=== PATIENT | female | born 1990 | race Caucasian/White ===

== ENCOUNTER → 2020-03-15 10:14 | Outpatient (BNVA) | payer OTHER, SELFPAY | PROVIDERS: PCP Internal Medicine; Visit Provider Surgery | DX: K80.20 Calculus of gallbladder without cholecystitis without obstruction (principal); R10.13 Epigastric pain | CPT/HCPCS: 99212 ==

== ENCOUNTER 2020-08-31 20:08 | Emergency (ER) | payer OTHER, SELFPAY ==
--- NOTE | ~2020-08-31 | US_ITS ---
EXAMINATION: US ABDOMEN LIMITED CLINICAL INFORMATION: Right upper quadrant epigastric pain with known gallstones. COMPARISON: None TECHNIQUE: Real-time imaging of the right upper quadrant abdominal viscera. FINDINGS: PANCREAS: The pancreas appears unremarkable, without masses or ductal dilatation, with the exception of the tail which is obscured by bowel gas. LIVER: The liver is normal in size. The liver contour is normal. Parenchymal echogenicity is normal. No focal hepatic lesion. There is no intrahepatic biliary duct dilatation seen. GALLBLADDER: The gallbladder is physiologically distended. Multiple mobile gallstones are present. No evidence of gallbladder wall thickening or pericholecystic fluid. The patient didn't exhibit tenderness over the gallbladder. COMMON BILE DUCT: Normal in caliber measuring 0.2 cm in diameter. RIGHT KIDNEY: Normal. No hydronephrosis. No renal calculi or focal parenchymal lesions. The kidney measures 10.0 cm in maximum dimension. FREE FLUID: None. US/US abdomen limited IMPRESSION: Cholelithiasis with some tenderness over the gallbladder. No wall thickening or pericholecystic fluid collections are seen.
[2020-08-31 20:16] VITALS: BP 113/73; PULSE 73; RESP 16; TEMP 36.8; O2SAT 99; BMI 26.1
--- NOTE | 2020-08-31 22:29 | ED_ITS ---
HPI - Abdominal Pain General Chief Complaint: Abdominal Pain Stated Complaint: nausea, abd pain Time Seen by Provider: 08/31/20 22:14 Source: patient Mode of arrival: ambulatory Limitations: no limitations History of Present Illness HPI narrative: Patient comes emergency room complaining of epigastric and right lower quadrant pain radiating towards the back. Patient states that she is aware that she has gallbladder stones. Has been seen by Dr. Callahan in March of 2020, it was decided to start patient on omeprazole to distinguish if the pain was coming from peptic ulcer disease/gastritis versus gallbladder calculi. Patient states that for last 2 months, omeprazole has been helping her symptoms. However, today, she has been taking omeprazole but the pain continues. Patient vomited 3 times, denies diarrhea, no fever. MD elicited complaint: abdominal pain Related Data Previous Rx's Medication Instructions Recorded omeprazole 20 mg capsule,delayed 20 mg PO DAILY 42 Days #42 cap 03/15/20 release ondansetron HCl [Zofran] 4 mg PO Q6H PRN #10 tab 09/01/20 tramadol 50 mg PO Q8H PRN #7 tab 09/01/20 Allergies Allergy/AdvReac Type Severity Reaction Status Date / Time No Known Allergies Allergy Unverified 12/23/19 16:25 [No Known Allergies*] Review of Systems Review of Systems Constitutional : No Weight loss, No Fever, No Chills, No Night Sweats, No Fatigue, No Malaise ENT/Mouth : No Hearing loss, No Ear Pain, No Nasal Congestion, No Sinus Pain, No Hoarseness, No sore throat, No Rhinorrhea, No Swallowing Difficulty Eyes: No Eye Pain, No Swelling, No Redness, No Foreign Body, No Discharge, No Vision Changes Cardiovascular : No Chest Pain, No SOB, No Dyspnea on Exertion, No Orthopnea, No Edema, No Palpitations Respiratory : No Cough, No Sputum, No Wheezing, No Smoke Exposure, No Dyspnea Gastrointestinal multiple episodes of nausea and vomiting,, No Diarrhea, No Constipation, complaining of epigastric and right upper quadrant pain radiating towards the back, No Hematochezia, No Melena Genitourinary : no irregular bleeding, No Dysuria, No Urinary Frequency, No Hematuria, No Urinary Incontinence, No Urgency, No Flank Pain, No Urinary Flow Changes, No Hesitancy Musculoskeletal : No joint pain, No Myalgias, No Joint Swelling Skin : No Skin Lesions, No rash Neuro : No Weakness, No Numbness, No Paresthesias, No Loss of Consciousness, No Dizziness, No Headache Psych : No Anxiety/Panic, No Depression, No SI/HI/AH/VH, No Social Issues, Heme/Lymph: No Bruising, No Bleeding,No Lymphadenopathy Endocrine : No Polyuria, No Polydipsia, No Temperature Intolerance Physical Exam Vital Signs: Vital Signs: Last Vital Signs Temp 98.1 F 09/01/20 02:28 Pulse 70 09/01/20 02:28 Resp 16 09/01/20 02:28 BP 122/71 09/01/20 02:28 Pulse Ox 100 09/01/20 02:28 Body Mass Index 26.1 Appearance: Alert. Oriented X3. No acute distress. Eyes: Pupils equal, round and reactive to light. ENT: Pharynx normal. Neck: Normal inspection. Neck supple. No lymph nodes noted. No crepitus CVS: Normal heart rate and rhythm. Pulses normal. Normal S1 and S2 Respiratory: No respiratory distress. Breath sounds normal. No Wheezing. No rales Abdomen: Soft tender to palpation over the epigastric area but more pronounced over the right upper quadrant, positive Valerio sign, No rigidity. No distention. good BS x4 Skin: Skin warm and dry. Normal skin color. Normal skin turgor. Extremities: No lower extremity edema. No lower extremity edema. No Lacerations. No Rash Neuro: Oriented X 3. No motor deficit. No sensory deficit. Moving all extermities. No slurred speech. Course Course Course Narrative: Patient was p.o. challenged, patient states that she has almost no pain at this time. I discussed with the patient that she needs to have close follow-up with Dr. Callahan/surgery. Patient did not vomit, did not have any additional abdominal pain. Ultrasound shows cholelithiasis with no acute cholecystitis. MDM - Abdominal Pain Lab Data Result diagrams: 08/31/20 22:44 08/31/20 22:44 Labs: Lab Results 08/31/20 08/31/20 Range/Units 22:44 22:44 WBC 7.3 (4.8-10.8) X10*3/uL RBC 4.76 (4.20-5.50) X10*6/uL Hgb 14.3 (12.0-16.0) g/dl Hct 42.4 (37-47) % MCV 89.1 (80-98) fL MCH 30.0 (27.0-33.0) pg MCHC 33.7 (31.0-35.0) g/dl RDW 11.9 (11.0-16.0) % Plt Count 328 (160-400) X10*3/uL MPV 9.5 (9.4-12.3) fL Immature Gran % (Auto) 0.1 (0.0-0.4) % Neut % (Auto) 45.3 (45-73) % Lymph % (Auto) 42.1 H (20-40) % Meeker % (Auto) 7.4 (2-11) % Eos % (Auto) 4.8 H (0-4) % Baso % (Auto) 0.3 (0-2) % Lymph # (Auto) 3.1 (1.2-4.9) X10*3/uL Meeker # (Auto) 0.5 (0.1-1.2) X10*3/uL Eos # (Auto) 0.4 (0.0-0.4) X10*3/uL Baso # (Auto) 0.0 (0.0-0.2) X10*3/uL Abs Immat Gran (auto) 0.01 (0.00-0.03) X10*3/uL Absolute Neuts (auto) 3.3 (2.0-8.3) X10*3/uL Absolute Nucleated RBC 0.000 (0.0-0.012) X10*3/uL Nucleated RBC % (auto) 0.0 (0.0-0.2) /100WBC Sodium 139 (135-145) mmol/L Potassium 3.9 (3.3-5.1) mmol/L Chloride 106 (96-108) mmol/L Carbon Dioxide 24 (22-29) mmol/L Anion Gap 13 (12-20) BUN 11 (9-16) mg/dL Creatinine 0.81 (0.5-1.4) mg/dL Estim Creat Clear Calc 106.9 Estimated GFR > 60 Random Glucose 97 (60-115) mg/dL Calcium 9.2 (8.4-10.2) mg/dL Total Bilirubin 0.2 (0.0-1.0) mg/dL Direct Bilirubin < 0.2 (0.0-0.5) mg/dL AST 71 H (5-31) U/L ALT 40 H (0-31) U/L Alkaline Phosphatase 63 (39-117) U/L Total Protein 6.7 (6.5-8.0) g/dL Albumin 4.0 (3.5-5.0) g/dL Lipase 49 (8-78) U/L ABG Data Interpretation: Patient states that after the ultrasound, the right upper quadrant pain starting getting worse. Patient lying in position and crying. Patient was given 4 mg of morphine. No nausea or vomiting. Imaging Data US - abdomen: Radiologist's impression: FINDINGS: PANCREAS: The pancreas appears unremarkable, without masses or ductal dilatation, with the exception of the tail which is obscured by bowel gas. LIVER: The liver is normal in size. The liver contour is normal. Parenchymal echogenicity is normal. No focal hepatic lesion. There is no intrahepatic biliary duct dilatation seen. GALLBLADDER: The gallbladder is physiologically distended. Multiple mobile gallstones are present. No evidence of gallbladder wall thickening or pericholecystic fluid. The patient didn't exhibit tenderness over the gallbladder. COMMON BILE DUCT: Normal in caliber measuring 0.2 cm in diameter. RIGHT KIDNEY: Normal. No hydronephrosis. No renal calculi or focal parenchymal lesions. The kidney measures 10.0 cm in maximum dimension. FREE FLUID: None. US/US abdomen limited IMPRESSION: Cholelithiasis with some tenderness over the gallbladder. No wall thickening or pericholecystic fluid collections are seen. Discharge Plan Discharge Clinical Impression: Cholelithiasis Patient Disposition: Home, Self-Care Instructions: Gallstones (ED) Additional Instructions: Please follow-up with your primary care physician tomorrow. If you have any worsening or new symptoms, please return to the emergency room or call 911 Prescriptions: New tramadol 50 mg tablet 50 mg PO Q8H PRN (Reason: pain) Qty: 7 RF: 0 ondansetron HCl [Zofran] 4 mg tablet 4 mg PO Q6H PRN (Reason: nausea and vomiting) Qty: 10 RF: 0 No Action omeprazole 20 mg capsule,delayed release(DR/EC) 20 mg PO DAILY 42 Days Qty: 42 RF: 0 Referrals: Casey Callahan MD [Physician] - 2 days [facility] Family History Family History Paternal Grandfather History of colon cancer Maternal Grandfather History of kidney cancer Social History Social History Alcohol intake: never Patient Tobacco Use Status: Never used Tobacco Use of substances other than those prescribed or required for medical reasons: No Advance Directives: No Advance Directives Information Provided: Yes Patient : No
[2020-08-31] MEDS: 0.9 % Sodium Chloride 1,000 ML 999 ML IVCONT (22:48)
[2020-08-31] MEDS: Lidocaine HCl Viscous 2 % 15 ML SOLUTION MUCOUS MEM (22:48)
[2020-08-31] MEDS: Magnesium Hydrox/Alum Hydrox 30 ML ORAL.SUSP PO (22:48)
[2020-08-31] MEDS: ondansetron HCL 4 MG/2 ML VIAL IVPUSH (22:48)
[2020-08-31] MEDS: Famotidine/PF 20 MG/2 ML VIAL IVPUSH (22:48)
[2020-08-31 22:50] LABS: MANUAL DIFF FLAG NO
[2020-08-31 22:52] LABS: Basophils Percent Auto 0.3 % (0-2); Eosinophils Absolute Auto 0.4 X10*3/uL (0.0-0.4); Eosinophils Percent Auto 4.8 % (0-4); Hematocrit 42.4 % (37-47); Hemoglobin 14.3 g/dl (12.0-16.0); Imm Gran Abs Auto 0.01 X10*3/uL (0.00-0.03); Imm Gran Pct Auto 0.1 % (0.0-0.4); Lymphocytes Absolute Auto 3.1 X10*3/uL (1.2-4.9); Lymphocytes Percent Auto 42.1 % (20-40); Mean Corpuscular HGB Conc 33.7 g/dl (31.0-35.0); Mean Corpuscular Volume 89.1 fL (80-98); Mean Platelet Volume 9.5 fL (9.4-12.3); Monocytes Absolute Auto 0.5 X10*3/uL (0.1-1.2); Monocytes Percent Auto 7.4 % (2-11); Neutrophils Absolute Auto 3.3 X10*3/uL (2.0-8.3); Neutrophils Percent Auto 45.3 % (45-73); Platelet Count 328 X10*3/uL (160-400); Red Blood Count 4.76 X10*6/uL (4.20-5.50); Red Cell Distribution Width 11.9 % (11.0-16.0); White Blood Count 7.3 X10*3/uL (4.8-10.8)
[2020-08-31 23:23] LABS: Alanine Aminotransferase 40 U/L (0-31); Alkaline Phosphatase 63 U/L (39-117); Anion Gap 13 (12-20); Aspartate Amino Transferase 71 U/L (5-31); Bilirubin Direct < 0.2 mg/dL (0.0-0.5); Bilirubin Total 0.2 mg/dL (0.0-1.0); Blood Urea Nitrogen 11 mg/dL (9-16); Calcium 9.2 mg/dL (8.4-10.2); Carbon Dioxide 24 mmol/L (22-29); Chloride 106 mmol/L (96-108); Creatinine Clr Calc Pharmacy 106.9; Estimated Glomerular Filt Rate > 60; Glucose Random 97 mg/dL (60-115); Lipase 49 U/L (8-78); Potassium 3.9 mmol/L (3.3-5.1); Sodium 139 mmol/L (135-145); Total Protein 6.7 g/dL (6.5-8.0)
[2020-09-01] MEDS: Morphine Sulfate 4 MG/ML CARTRIDGE IVPUSH (00:18)
[2020-09-01 02:28] VITALS: BP 122/71; PULSE 70; RESP 16; TEMP 36.7; O2SAT 100
[2020-09-01] MEDS: Morphine Sulfate 2 MG/ML CARTRIDGE 1 MG IVPUSH (03:19)
== END 2020-09-01 03:26 | disposition home or self-care (01) ==
PROVIDERS: Emergency Provider Emergency Medicine
DX: K80.20 Calculus of gallbladder without cholecystitis without obstruction (principal); R10.13 Epigastric pain; R10.31 Right lower quadrant pain; Z79.899 Other long term (current) drug therapy
CPT/HCPCS: 36415; 76705; 80048; 80076; 83690; 85025; 96365; 96374; 96375; 96376; 99284; J2270; J2405

== ENCOUNTER → 2020-09-05 09:17 | Outpatient (BNVA) | payer OTHER, SELFPAY | PROVIDERS: Visit Provider Surgery | DX: K80.00 Calculus of gallbladder with acute cholecystitis without obstruction (principal) | CPT/HCPCS: 99212 ==

== ENCOUNTER 2020-09-13 10:36 | Day surgery (SDC) | payer OTHER, SELFPAY ==
--- NOTE | 2020-09-12 09:43 | P.CONAN_ITS ---
Documented by User: Autumn Dutton 09/12/20 09:44 HPI - Anesthesia Eval Consult details Narrative: 29yo F for Cholecystectomy Laparoscopic, Poss Open [facility] Active Problems Active Problems: All Active Problems (Updated 09/05/20 @ 10:15 by Casey Callhaan MD) Cholecystitis, acute with cholelithiasis (Acute) Epigastric abdominal pain (Acute) Past Medical History Medical History No significant past medical history Family History Family History Paternal Grandfather History of colon cancer Maternal Grandfather History of kidney cancer Surgical History Surgical History Hx of wisdom tooth extraction Social History Social History Alcohol intake: never Patient Tobacco Use Status: Never used Tobacco Use of substances other than those prescribed or required for medical reasons: No Are you DNR?: No Advance Directives: No Advance Directives Information Provided: Yes Meds Allergies Allergy/AdvReac Type Severity Reaction Status Date / Time No Known Allergies Allergy Verified 09/13/20 11:23 [No Known Allergies*] Exam Exam Date and Time: September 12, [id number] Pertinent Lab Results Pertinent Lab Results: Laboratory Tests 08/31/20 08/31/20 22:44 22:44 WBC 7.3 Hgb 14.3 Hct 42.4 Plt Count 328 Sodium 139 Potassium 3.9 Chloride 106 Carbon Dioxide 24 BUN 11 Creatinine 0.81 Assessment and Plan Assessment Anesthesia Assessment: Chart Reviewed Documented by User: Betty Maddox 09/13/20 12:25 [facility] Past Medical History Medical History No significant past medical history Family History Family History Paternal Grandfather History of colon cancer Maternal Grandfather History of kidney cancer Surgical History Surgical History Hx of wisdom tooth extraction Social History Social History Alcohol intake: never Patient Tobacco Use Status: Never used Tobacco Use of substances other than those prescribed or required for medical reasons: No Are you DNR?: No Advance Directives: No Advance Directives Information Provided: Yes Meds Allergies Allergy/AdvReac Type Severity Reaction Status Date / Time No Known Allergies Allergy Verified 09/13/20 11:23 [No Known Allergies*] Exam Airway Mallampati Class: II TM Dist: >3cm Neck ROM: Full Assessment and Plan Assessment Anesthesia Assessment: Anesthesia Plan Discussed and Chart Reviewed Final Anesthetic Review NPO: Yes ASA Class: II Final Preanesthetic Review: No Changes in Pt Med Stat, Meds/Allgs Chart Reviewed, Consent Obtained/Reviewed and Anes Risks/Benef Reviewed Patient Risk: Low Procedure Risk: Low Assessment/Block/Sedation in SS: Assess/Block/Sedation-SS Anesthetic Plan Anesthetic Plan: GA Disposition: Standard PACU
[2020-09-13] VITALS (11 sets, daily range): BP systolic 113–138; BP diastolic 64–77; PULSE 64–100; RESP 16–18; TEMP 36.5–37.1; O2SAT 97–100; BMI 25.4
[2020-09-13 11:02] LABS: UPreg QC Valid YES; Urine Pregnancy NEGATIVE (NEGATIVE)
[2020-09-13] MEDS: Acetaminophen 325 MG TABLET 650 MG PO (11:10)
[2020-09-13] MEDS: Lactated Ringers 1,000 ML 100 ML IVCONT (11:20)
--- NOTE | 2020-09-13 12:50 | MHC.SHP ---
Pre-Procedural Eval Section A The patient is an INPATIENT: No Changes since office visit: Yes Patient answered all questions; No Cold of Flu in the past 2 weeks, No New Medical Problems and No Changes in Medication The History & Physical has been completed within 30 days and I have reviewed it.: Yes Section B Chief Complaint: Cholecystitis, acute with cholelithiasis Allergies: Allergies Allergy/AdvReac Type Severity Reaction Status Date / Time No Known Allergies Allergy Verified 09/13/20 11:23 [No Known Allergies*] Plan Diagnosis/Plan: Unchanged I have reviewed the history and physical and performed a pertinent physical examination on my patient. No changes have occurred unless specified.
--- NOTE | 2020-09-13 13:46 | W.PM.OPN ---
Operative Note Operative Note Date of Service: 09/13/20 Narrative: Preoperative diagnosis: Acute cholecystitis, cholelithiasis Postoperative diagnosis: Same Procedure: Laparoscopic cholecystectomy Surgeon: Casey Callahan MD Data Entry Specialist: No physician Anesthesia: General endotracheal Indications for procedure: 29-year-old female presenting with complaints of abdominal pain in the right upper quadrant associated with nausea and vomiting, found to have several gallstones within the gallbladder. On examination the patient is found to be tender in the right upper quadrant with a positive Valerio sign suggestive of acute cholecystitis. She presents today for elective laparoscopic cholecystectomy. Operative findings: Minimally inflamed gallbladder with normal gallbladder wall. Several gallstones within the gallbladder at the neck Specimen: Gallbladder Estimated blood loss: 1 mL Complications: None Procedure details: Patient was brought to the OR and placed in a supine position. After administering general anesthesia the patient's abdomen was prepped with ChloraPrep and draped in a sterile fashion. Local anesthesia consisting of 0.25% Sensorcaine with epinephrine was infiltrated in a periumbilical region. A 5 mm incision was made above the umbilicus in a transverse fashion. The Veress needle was then inserted while elevating abdominal cavity with towel clips. After positive drop test the abdomen was insufflated to a pressure of 15 mm of mercury. The Veress needle was then removed and a 5 mm trocar inserted. The camera was inserted in the abdomen explored. A 12 mm trocar was then placed in the epigastrium and two 5 mm trocars placed in the right upper quadrant. The patient was placed in reverse Trendelenburg positioning and rotated to the left. The gallbladder was grasped with the fundus and retracted cephalad.. The infundibulum Was then grasped and retracted away from the liver bed. The Dolphin dissected was then used to dissect the peritoneum off the infundibulum to reveal the junction with the cystic duct. Cystic artery was noted slightly medial and posterior to the cystic duct. After obtaining a critical view the cystic duct was doubly clipped and divided. The cystic artery was then doubly clipped and divided. The gallbladder was then dissected off the liver bed using electrocautery with an L hook. Hemostasis was assured all times using the electrocautery. When the gallbladder is completely dissected off the liver bed was placed in an Endo-Catch bag and brought out through the epigastric incision. The gallbladder was sent to pathology for further examination. The abdomen was then re-examined. The liver bed was irrigated and suctioned dry. No bleeding or bile leak could be identified. CO2 was then evacuated and all trocars removed. Fascia was closed at the epigastric incision using a [id number] 0 Polysorb suture. Skin was closed in all incisions using a subcuticular 4 0 Polysorb suture. Sterile dressings consisting of Steri-Strips, 2 x 2 gauze, and Tegaderm were then applied. The patient tolerated the procedure well. Sponge instrument and needle counts reported as correct. The patient was transferred to PACU in stable condition.
== END 2020-09-13 16:55 | disposition home or self-care (01) ==
PROVIDERS: Nurse Practitioner; Visit Provider Surgery
PROC: 0FT44ZZ Resection of Gallbladder, Percutaneous Endoscopic Approach (ICD-10-PCS; CPT 47562; principal; 2020-09-13 12:20)
DX: K80.00 Calculus of gallbladder with acute cholecystitis without obstruction (principal)
CPT/HCPCS: 47562; 81025; 88304; J1100; J1170; J1885; J2250; J2405; J2550; J3010

== ENCOUNTER → 2020-09-19 09:14 | Outpatient (BNVA) | payer OTHER, SELFPAY | PROVIDERS: PCP Physician Assistant Medical; Visit Provider Surgery | DX: Z48.815 Encounter for surgical aftercare following surgery on the digestive system (principal); Z87.19 Personal history of other diseases of the digestive system | CPT/HCPCS: 99212 ==

== ENCOUNTER 2020-10-24 15:32 | Emergency (ER) | payer OTHER, SELFPAY ==
[2020-10-24 16:00] VITALS: BP 129/92; PULSE 89; RESP 18; TEMP 36.8; O2SAT 98; BMI 25.4
--- NOTE | 2020-10-24 17:56 | ED.GENADULT ---
HPI - General Adult General Chief complaint: General Medical Stated complaint: vomiting,abdominal pain Time Seen by Provider: 10/24/20 17:55 Source: patient Mode of arrival: ambulatory Limitations: no limitations History of Present Illness HPI narrative: 29 y/o female with history of cholecystitis with cholelithiasis s/p lap cholecystectomy on 09/13/20 who presents to the ER complaint: N/V Related Data Previous Rx's Medication Instructions Recorded ondansetron HCl [Zofran] 4 mg PO Q6H PRN #10 tab 09/01/20 tramadol 50 mg PO Q8H PRN #7 tab 09/01/20 docusate sodium 100 mg capsule 100 mg PO BID PRN #30 cap 09/15/20 Allergies Allergy/AdvReac Type Severity Reaction Status Date / Time No Known Allergies Allergy Verified 10/24/20 16:16 [No Known Allergies*] [facility], [facility] Past Medical History Medical History No significant past medical history Surgical History (Updated 09/19/20 @ 09:38 by Casey Callahan MD) Hx of wisdom tooth extraction S/P laparoscopic cholecystectomy (09/13/20) Family History Family History Paternal Grandfather History of colon cancer Maternal Grandfather History of kidney cancer Social History Social History Alcohol intake: never Patient Tobacco Use Status: Never used Tobacco Patient : No Physical Exam Vital Signs: Vital Signs: Last Vital Signs Temp 98.3 F 10/24/20 16:00 Pulse 89 10/24/20 16:00 Resp 18 10/24/20 16:00 BP 129/92 H 10/24/20 16:00 Pulse Ox 98 10/24/20 16:00 Body Mass Index 25.4 Discharge Plan Discharge Prescriptions: No Action docusate sodium [Colace] 100 mg capsule 100 mg PO BID PRN (Reason: constipation) Qty: 30 RF: 0 tramadol 50 mg tablet 50 mg PO Q8H PRN (Reason: pain) Qty: 7 RF: 0 ondansetron HCl [Zofran] 4 mg tablet 4 mg PO Q6H PRN (Reason: nausea and vomiting) Qty: 10 RF: 0
== END 2020-10-24 18:29 | disposition left against medical advice (07) ==
LOC: HO.ED 18:29
PROVIDERS: Emergency Provider Internal Medicine
DX: R11.10 Vomiting, unspecified (principal); R10.9 Unspecified abdominal pain
CPT/HCPCS: 99281; 99282

== ENCOUNTER 2021-01-14 08:13 | Emergency (ER) | payer OTHER, SELFPAY ==
--- NOTE | ~2021-01-14 | CT_ITS ---
EXAMINATION: CT ABDOMEN AND PELVIS WITH CONTRAST CLINICAL INFORMATION: Epigastric, right upper quadrant, left flank pain COMPARISON: Portions of a study performed without IV contrast 08/24/14 TECHNIQUE: Multidetector volumetric images were obtained from the superior aspect of the liver through the pubic symphysis following administration 85 mL of Omnipaque 350 intravenous contrast. Sagittal and coronal reformatted images were obtained on the technologist's workstation. Oral contrast: No This CT examination was performed using dose optimization techniques as appropriate, variously including the following: *Automated exposure control *Adjustment of mA and/or kV according to patient size (this includes techniques or standardized protocols for targeted exams where dose is matched to indication/reason for exam; i.e. extremities or head) *Use of iterative reconstruction technique DLP: 533 mGy-cm FINDINGS: LUNG BASES: No suspicious abnormality in the visualized lower chest LIVER, GALLBLADDER, AND BILIARY TREE: No suspicious focal liver lesion. There is surgical clips in the expected region of the gallbladder. No biliary dilation. 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 The nephrograms are symmetric. No suspicious renal mass. No perinephric stranding. BLADDER: The bladder is nearly empty. No definite abnormality. GASTROINTESTINAL TRACT: No localized colonic wall thickening or localized pericolonic fat stranding. The appendix is fairly long but normal caliber and there is no localized fat stranding or appendicolith. There is fluid and semisolid material within a moderately distended stomach. There are some fluid-filled top normal caliber small bowel loops. No evidence of high-grade bowel obstruction. ABDOMINAL WALL: There is some nonspecific fat stranding. No bowel hernia. LYMPH NODES: There are no measurably enlarged abdominal or pelvic lymph nodes. VASCULAR: There is no abdominal aortic aneurysm. The portal vein enhances. PELVIC VISCERA: The uterus is retroflexed. No suspicious adnexal mass or collection. OSSEOUS STRUCTURES: No suspicious focal lesion. CT/CT abdomen pelvis w con IMPRESSION: There is no abnormality which might account for epigastric, right upper quadrant or left flank pain. Evidence of previous cholecystectomy. Long but normal caliber appendix. No evidence of significant GI tract obstruction.
[2021-01-14 08:21] VITALS: BP 127/83; PULSE 88; RESP 18; TEMP 36.4; O2SAT 98; BMI 25.8
[2021-01-14 08:58] VITALS: BP 124/93; PULSE 94; RESP 20; TEMP 37.6; O2SAT 97
[2021-01-14 09:12] LABS: MANUAL DIFF FLAG NO
[2021-01-14] MEDS: ondansetron HCL 4 MG/2 ML VIAL IVPUSH (09:13)
[2021-01-14] MEDS: 0.9 % Sodium Chloride 1,000 ML 999 ML IVCONT (09:13)
[2021-01-14] MEDS: Morphine Sulfate 4 MG/ML CARTRIDGE IVPUSH (09:13)
[2021-01-14 09:14] LABS: Basophils Percent Auto 0.3 % (0-2); Eosinophils Absolute Auto 0.2 X10*3/uL (0.0-0.4); Eosinophils Percent Auto 3.1 % (0-4); Hemoglobin 14.7 g/dl (12.0-16.0); Imm Gran Abs Auto 0.01 X10*3/uL (0.00-0.03); Imm Gran Pct Auto 0.1 % (0.0-0.4); Lymphocytes Absolute Auto 1.4 X10*3/uL (1.2-4.9); Lymphocytes Percent Auto 17.9 % (20-40); Mean Corpuscular Hemoglobin 30.3 pg (27.0-33.0); Mean Corpuscular Volume 86.6 fL (80-98); Mean Platelet Volume 9.7 fL (9.4-12.3); Monocytes Absolute Auto 0.4 X10*3/uL (0.1-1.2); Monocytes Percent Auto 5.2 % (2-11); Neutrophils Absolute Auto 5.6 X10*3/uL (2.0-8.3); Neutrophils Percent Auto 73.4 % (45-73); Platelet Count 274 X10*3/uL (160-400); Red Blood Count 4.85 X10*6/uL (4.20-5.50); Red Cell Distribution Width 11.6 % (11.0-16.0); White Blood Count 7.7 X10*3/uL (4.8-10.8)
[2021-01-14 09:21] LABS: Prothrombin Time 11.1 SEC (9.9-13.0)
[2021-01-14 09:38] LABS: Alanine Aminotransferase 19 U/L (0-31); Alkaline Phosphatase 67 U/L (39-117); Anion Gap 13 (12-20); Aspartate Amino Transferase 31 U/L (5-31); Bilirubin Total 0.6 mg/dL (0.0-1.0); Blood Urea Nitrogen 13 mg/dL (9-16); Carbon Dioxide 21 mmol/L (22-29); Chloride 110 mmol/L (96-108); Creatinine Clr Calc Pharmacy 108.1; Estimated Glomerular Filt Rate > 60; Glucose Random 110 mg/dL (60-115); Lactate Dehydrogenase 282 U/L (122-220); Lipase 25 U/L (8-78); Potassium 4.7 mmol/L (3.3-5.1); Sodium 139 mmol/L (135-145); Total Protein 7.1 g/dL (6.5-8.0)
[2021-01-14 09:52] LABS: HCG Quantitative < 2 mIU/mL
[2021-01-14 10:23] VITALS: BP 98/49; PULSE 91; RESP 18; TEMP 37.2; O2SAT 100
[2021-01-14] MEDS: PHENobarb/Hyoscy/Atropine/Scop 10 ML ELIXIR PO (10:32)
[2021-01-14] MEDS: Ketorolac Tromethamine 15 MG/ML VIAL 30 MG IVPUSH (10:32)
[2021-01-14] MEDS: Lidocaine HCl Viscous 2 % 15 ML SOLUTION MUCOUS MEM (10:32)
[2021-01-14] MEDS: Magnesium Hydrox/Alum Hydrox 30 ML ORAL.SUSP PO (10:32)
--- NOTE | 2021-01-14 10:47 | ED_ITS ---
HPI - Abdominal Pain General Chief Complaint: Abdominal Pain Stated Complaint: abd pain Time Seen by Provider: 01/14/21 08:42 Source: patient Mode of arrival: ambulatory Limitations: no limitations History of Present Illness HPI narrative: 30-year-old female with a past medical history of a cholecystectomy by Dr. Callahan in September 2020 presenting to the ED with complaints of nausea/vomiting with epigastric/right upper quadrant abdominal pain and left flank pain since yesterday worse today. Reports associated chills and diarrhea as well. Denies recent travel or sick contacts. Denies any measured fevers, dizziness, headaches, neck pain/stiffness, chest pain or shortness of breath, cough, sore throat, back pain, dysuria, hematuria, abnormal vaginal discharge, black or bloody stools, constipation, recent travel or sick contacts or recent ETOH intake or drug usage or any other symptoms complaints or concerns at this time. Patient reports she is on the Depo for control and her last period was approximately 3 months ago and she has irregular periods since being on the Depo for control. Does not have any thoughts of today. MD elicited complaint: abdominal pain Pertinent past history: other (Had a cholecystectomy in September 2020) Onset (ago): day(s) (Since yesterday worse today) Pain Consistency: constant Location: epigastric, RUQ and L flank Severity: severe Pain scale (0-10): 10 Quality: aching Radiation: none Migration to: no migration Exacerbating factors: nothing Relieving factors: nothing Associated symptoms: nausea, vomiting, diarrhea and chills Related Data Previous Rx's Medication Instructions Recorded ondansetron HCl 4 mg tablet 4 mg PO Q6H PRN #10 tab 09/01/20 (Zofran) tramadol 50 mg tablet 50 mg PO Q8H PRN #7 tab 09/01/20 docusate sodium 100 mg capsule 100 mg PO BID PRN #30 cap 09/15/20 (Colace) acetaminophen 500 mg tablet 1,000 mg PO QID PRN #14 tab 01/14/21 (Tylenol Extra Strength) famotidine 20 mg tablet (Pepcid) 20 mg PO BID #20 tab 01/14/21 ibuprofen 600 mg tablet 600 mg PO Q6H PRN #14 tab 01/14/21 ondansetron HCl 4 mg tablet 4 mg PO Q8H PRN #14 tab 01/14/21 (Zofran) oxycodone 5 mg tablet 5 mg PO Q6H PRN #14 tab 01/14/21 simethicone 125 mg capsule 125 mg PO DAILY PRN #20 cap 01/14/21 Allergies Allergy/AdvReac Type Severity Reaction Status Date / Time No Known Allergies Allergy Verified 10/24/20 16:16 [No Known Allergies*] Review of Systems Review of Systems Constitutional : Positive chills, No Weight loss, No Fever, No Night Sweats, No Fatigue, NoMalaise ENT/Mouth: No ear pain, No sore throat, No Difficulty swallowing Cardiovascular : No Chest Pain, No SOB, No Dyspnea on Exertion, No Orthopnea, NoEdema, No Palpitations Respiratory : No Cough, No Sputum, No Wheezing, No Dyspnea Gastrointestinal : Positive nausea/vomiting/abdominal pain/diarrhea, No blood streaked emesis, No coffee-ground emesis, No gross hematemesis, No blood streak stool, No gross hematochezia, No Melena Genitourinary : No irregular bleeding, No Dysuria, No Urinary Frequency, No Hematuria,No Urinary Incontinence, No Urgency, No Flank Pain Musculoskeletal : No joint pain, No Myalgias, No Joint Swelling Skin : No Skin Lesions, No rash Neuro : No Weakness, No Numbness, No Paresthesias, No Loss of Consciousness, NoDizziness, No Headache Psych : No Social Issues, Heme/Lymph: No Bruising, No Bleeding,No Lymphadenopathy Endocrine : No Polyuria, No Polydipsia, No Temperature Intolerance Yes all other systems are reviewed and are negative Physical Exam Vital Signs: Vital Signs: Last Vital Signs Temp 98.7 F 01/14/21 12:25 Pulse 80 01/14/21 12:25 Resp 18 01/14/21 12:25 BP 104/48 L 01/14/21 12:25 Pulse Ox 98 01/14/21 12:25 Body Mass Index 25.8 vital signs have been reviewed as normal and appeared to be correct. Blood pressure normal. Heart rate normal. Respiration rate normal. Temperature normal. Oxygen saturation normal. Appearance: Alert. Oriented X3. No acute distress. Head: Normal external exam. Normocephalic. Eyes: PERRLA. EOMI. Conjunctiva and sclera normal. Eyelids normal. ENT: Pharynx normal. Uvula midline. Moist mucous membranes. Neck: Normal inspection. Neck supple. FROM. No adenopathy. No meningeal signs. CVS: Normal heart rate and rhythm. Heart sound normal. No murmurs noted. Pulses normal throughout. Respiratory: No respiratory distress. Painless inspiration. Breath sounds normal. No wheezes/rales/rhonchi noted. Chest nontender. No accessory muscle usage noted or decreased air movement noted. Abdomen: Soft and moderate tenderness of patient to epigastric/right upper quadrant/left flank with guarding. Nondistended. No rigidity. Bowel sounds normal in all 4 quadrants. No distention noted. No organomegaly noted. No visible injury noted. No rebound tenderness. Negative Rovsing sign. Negative obturator's sign. Negative psoas sign. Negative Valerio sign. Back: Positive bilateral CVA tenderness. Full range of motion noted. Skin: Skin warm and dry. Normal skin color. Normal skin turgor. No rashes /lesions/lacerations noted. Extremities: Extremities exhibit normal range of motion. Extremities nontender. Neuro: Oriented X 3. No motor deficit. No sensory deficit. Reflexes normal. Normal steady gait. Course Course Course Narrative: 8:45am - 30-year-old female with a past medical history of a cholecystectomy by Dr. Callahan in September 2020 presenting to the ED with complaints of nausea/vomiting with epigastric/right upper quadrant abdominal pain and left flank pain since yesterday worse today. Reports associated chills and diarrhea as well. Patient reports she is on the Depo for control and her last period was approximately 3 months ago and she has irregular periods since being on the Depo for control. Does not have any thoughts of today. No recent EtOH intake. Plan: Labs, UA, test, CT scan abdomen pelvis with IV contrast. Provide a L of IV fluids with 4 mg of Zofran and 4 mg of morphine and re- evaluate. Reevaluation(s) Reevaluation #1: - labs reviewed and patient with an elevated LDH at 282 otherwise all other labs are within normal limits. Serum quant negative for . - awaiting CT scan abdomen pelvis with IV contrast and a UA - patient was still complaining of pain and she was noted to have a lot of burping therefore she was given a GI cocktail and 30 mg of IV Toradol re- evaluate Time: 10:54 Reevaluation #2: - UA with trace of leukocytes otherwise no evidence of UTI and negative . - abdomen pelvis with IV contrast revealed chronic changes no acute processes were noted and no abnormality which might account for the patient's epigastric/right upper quadrant/left flank pain. I printed out the report given to the patient explained this to her. - she was very tearful when I went into the room appeared in pain and I explained to her that I can give her more pain medications and we can and admit her for intractable unknown abdominal pain although patient is declining and she reports that she will go home with pain meds and nausea medication and should return if she needs to. Therefore at this time will DC home with symptomatic treatment instructions return if any new or worsening 7 follow-up with primary care provider. Patient understands agrees with this plan. Time: 13:12 [facility] - Abdominal Pain Medical Records Attestation: I reviewed the patient's medical records. Lab Data Attestation: I reviewed the patient's lab results. Result diagrams: 01/14/21 09:08 01/14/21 09:09 Labs: Lab Results 01/14/21 01/14/21 01/14/21 Range/Units 09:08 09:08 09:09 WBC 7.7 (4.8-10.8) X10*3/uL RBC 4.85 (4.20-5.50) X10*6/uL Hgb 14.7 (12.0-16.0) g/dl Hct 42.0 (37-47) % MCV 86.6 (80-98) fL MCH 30.3 (27.0-33.0) pg MCHC 35.0 (31.0-35.0) g/dl RDW 11.6 (11.0-16.0) % Plt Count 274 (160-400) X10*3/uL MPV 9.7 (9.4-12.3) fL Immature Gran % (Auto) 0.1 (0.0-0.4) % Neut % (Auto) 73.4 H (45-73) % Lymph % (Auto) 17.9 L (20-40) % [place] % (Auto) 5.2 (2-11) % Eos % (Auto) 3.1 (0-4) % Baso % (Auto) 0.3 (0-2) % Lymph # (Auto) 1.4 (1.2-4.9) X10*3/uL [place] # (Auto) 0.4 (0.1-1.2) X10*3/uL Eos # (Auto) 0.2 (0.0-0.4) X10*3/uL Baso # (Auto) 0.0 (0.0-0.2) X10*3/uL Abs Immat Gran (auto) 0.01 (0.00-0.03) X10*3/uL Absolute Neuts (auto) 5.6 (2.0-8.3) X10*3/uL Absolute Nucleated RBC 0.000 (0.0-0.012) X10*3/uL Nucleated RBC % (auto) 0.0 (0.0-0.2) /100WBC PT 11.1 (9.9-13.0) SEC INR 1.0 (0.9-1.1) Sodium 139 (135-145) mmol/L Potassium 4.7 D (3.3-5.1) mmol/L Chloride 110 H (96-108) mmol/L Carbon Dioxide 21 L (22-29) mmol/L Anion Gap 13 (12-20) BUN 13 (9-16) mg/dL Creatinine 0.79 (0.5-1.4) mg/dL Estim Creat Clear Calc 108.1 Estimated GFR > 60 Random Glucose 110 (60-115) mg/dL Calcium 9.0 (8.4-10.2) mg/dL Magnesium 2.0 (1.6-2.6) mg/dL Total Bilirubin 0.6 (0.0-1.0) mg/dL AST 31 D (5-31) U/L ALT 19 (0-31) U/L Alkaline Phosphatase 67 (39-117) U/L Lactate Dehydrogenase 282 H (122-220) U/L Total Protein 7.1 (6.5-8.0) g/dL Albumin 4.0 (3.5-5.0) g/dL Lipase 25 (8-78) U/L Beta HCG, Quant < 2 mIU/mL Urine Color Urine Appearance Urine pH (5.0-8.0) Ur Specific [place] (1.005-1.025) Urine Protein (NEG-TRACE) MG/DL Urine Glucose (UA) (NEG) MG/DL Urine Ketones (NEG) MG/DL Urine Blood (NEG) Urine Nitrite (NEG) Ur Leukocyte Esterase (NEG) Urine RBC (0) /HPF Urine WBC (0-4) /HPF Ur Squamous Epith Cells /LPF Urine Bacteria /LPF Urine Test (NEGATIVE) 01/14/21 01/14/21 Range/Units 11:48 11:48 WBC (4.8-10.8) X10*3/uL RBC (4.20-5.50) X10*6/uL Hgb (12.0-16.0) g/dl Hct (37-47) % MCV (80-98) fL MCH (27.0-33.0) pg MCHC (31.0-35.0) g/dl RDW (11.0-16.0) % Plt Count (160-400) X10*3/uL MPV (9.4-12.3) fL Immature Gran % (Auto) (0.0-0.4) % Neut % (Auto) (45-73) % Lymph % (Auto) (20-40) % [place] % (Auto) (2-11) % Eos % (Auto) (0-4) % Baso % (Auto) (0-2) % Lymph # (Auto) (1.2-4.9) X10*3/uL [place] # (Auto) (0.1-1.2) X10*3/uL Eos # (Auto) (0.0-0.4) X10*3/uL Baso # (Auto) (0.0-0.2) X10*3/uL Abs Immat Gran (auto) (0.00-0.03) X10*3/uL Absolute Neuts (auto) (2.0-8.3) X10*3/uL Absolute Nucleated RBC (0.0-0.012) X10*3/uL Nucleated RBC % (auto) (0.0-0.2) /100WBC PT (9.9-13.0) SEC INR (0.9-1.1) Sodium (135-145) mmol/L Potassium (3.3-5.1) mmol/L Chloride (96-108) mmol/L Carbon Dioxide (22-29) mmol/L Anion Gap (12-20) BUN (9-16) mg/dL Creatinine (0.5-1.4) mg/dL Estim Creat Clear Calc Estimated GFR Random Glucose (60-115) mg/dL Calcium (8.4-10.2) mg/dL Magnesium (1.6-2.6) mg/dL Total Bilirubin (0.0-1.0) mg/dL AST (5-31) U/L ALT (0-31) U/L Alkaline Phosphatase (39-117) U/L Lactate Dehydrogenase (122-220) U/L Total Protein (6.5-8.0) g/dL Albumin (3.5-5.0) g/dL Lipase (8-78) U/L Beta HCG, Quant mIU/mL Urine Color YELLOW Urine Appearance CLEAR Urine pH 6.0 (5.0-8.0) Ur Specific [place] 1.025 (1.005-1.025) Urine Protein NEG (NEG-TRACE) MG/DL Urine Glucose (UA) NEG (NEG) MG/DL Urine Ketones NEG (NEG) MG/DL Urine Blood NEG (NEG) Urine Nitrite NEG (NEG) Ur Leukocyte Esterase TRACE H (NEG) Urine RBC 0 (0) /HPF Urine WBC 1-4 (0-4) /HPF Ur Squamous Epith Cells 2+ /LPF Urine Bacteria 1+ /LPF Urine Test NEGATIVE (NEGATIVE) Imaging Data CT scan abdomen pelvis with IV contrast: Attestation: I personally reviewed and interpreted this imaging study as follows: Radiologist's impression: FINDINGS: LUNG BASES: No suspicious abnormality in the visualized lower chest? LIVER, GALLBLADDER, AND BILIARY TREE: No suspicious focal liver lesion. There is surgical clips in the expected region of the gallbladder. No biliary dilation.? PANCREAS: Within normal limits? SPLEEN: Normal? ADRENAL GLANDS: Normal? 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 The nephrograms are symmetric. No suspicious renal mass. No perinephric stranding.? BLADDER: The bladder is nearly empty. No definite abnormality.? GASTROINTESTINAL TRACT: No localized colonic wall thickening or localized pericolonic fat stranding. The appendix is fairly long but normal caliber and there is no localized fat stranding or appendicolith. There is fluid and semisolid material within a moderately distended stomach. There are some fluid-filled top normal caliber small bowel loops. No evidence of high-grade bowel obstruction.? ABDOMINAL WALL: There is some nonspecific fat stranding. No bowel hernia.? LYMPH NODES: There are no measurably enlarged abdominal or pelvic lymph nodes. VASCULAR: There is no abdominal aortic aneurysm. The portal vein enhances. PELVIC VISCERA: The uterus is retroflexed. No suspicious adnexal mass or collection.? OSSEOUS STRUCTURES: No suspicious focal lesion.? CT/CT abdomen pelvis w con IMPRESSION: There is no abnormality which might account for epigastric, right upper quadrant or left flank pain. Evidence of previous cholecystectomy. Long but normal caliber appendix. No evidence of significant GI tract obstruction.? Discharge Plan Discharge Clinical Impression: Epigastric abdominal pain, Flatus, GERD (gastroesophageal reflux disease) Patient Disposition: Home, Self-Care Instructions: Gastroesophageal Reflux Disease (ED), Gas and Bloating (ED), Epigastric Pain (ED) Prescriptions: New ondansetron HCl [Zofran] 4 mg tablet 4 mg PO Q8H PRN (Reason: nausea and vomiting) Qty: 14 RF: 0 famotidine [Pepcid] 20 mg tablet 20 mg PO BID Qty: 20 RF: 0 oxycodone 5 mg tablet 5 mg PO Q6H PRN (Reason: pain) Qty: 14 RF: 0 simethicone 125 mg capsule 125 mg PO DAILY PRN (Reason: abdominal distention) Qty: 20 RF: 0 acetaminophen [Tylenol Extra Strength] 500 mg tablet 1,000 mg PO QID PRN (Reason: fever or pain) Qty: 14 RF: 0 ibuprofen 600 mg tablet 600 mg PO Q6H PRN (Reason: fever) Qty: 14 RF: 0 No Action docusate sodium [Colace] 100 mg capsule 100 mg PO BID PRN (Reason: constipation) Qty: 30 RF: 0 tramadol 50 mg tablet 50 mg PO Q8H PRN (Reason: pain) Qty: 7 RF: 0 ondansetron HCl [Zofran] 4 mg tablet 4 mg PO Q6H PRN (Reason: nausea and vomiting) Qty: 10 RF: 0 Referrals: Physician,Unknown J [Primary Care Provider] - 2 days (your pcp) Stand Alone Forms: Work/School Release Print Language: Citizen Of [place] [facility] Past Medical History Attestation statement: The following information was validated with the patient. Medical History No significant past medical history Surgical History Hx of wisdom tooth extraction S/P laparoscopic cholecystectomy (09/13/20) Family History Family History Paternal Grandfather History of colon cancer Maternal Grandfather History of kidney cancer Social History Social History Alcohol intake: never Patient Tobacco Use Status: Never used Tobacco Use of substances other than those prescribed or required for medical reasons: No Advance Directives: No Patient : No
[2021-01-14] MEDS: iohexoL 350 MG/ML 100 ML INFUS..BTL 85 ML IV (11:14)
[2021-01-14 11:53] LABS: Appearance Urine CLEAR; Color Urine YELLOW; Glucose Urine UA NEG (NEG); Leukocyte Esterase Urine TRACE (NEG); Nitrite Urine NEG (NEG); Specific Gravity - Urine 1.025 (1.005-1.025); UACC Culture Trigger YES; Urine Blood NEG (NEG); Urine Ketones NEG (NEG); Urine Protein NEG (NEG-TRACE)
[2021-01-14 11:54] LABS: UPreg QC Valid YES; Urine Pregnancy NEGATIVE (NEGATIVE)
[2021-01-14 12:01] LABS: Bacteria Urine 1+ /LPF; RBC Urine 0 /HPF (0); Squamous Epithelial Cell Urine 2+ /LPF
[2021-01-14 12:25] VITALS: BP 104/48; PULSE 80; RESP 18; TEMP 37.1; O2SAT 98
[2021-01-14] MEDS: Famotidine 20 MG TABLET PO (13:31)
[2021-01-14] MEDS: Simethicone 80 MG TAB.CHEW 160 MG PO (13:31)
[2021-01-14] MEDS: oxyCODONE HCl Immed Release 5 MG TABLET PO (13:31)
== END 2021-01-14 13:37 | disposition home or self-care (01) ==
PROVIDERS: Physician Assistant Medical; Emergency Provider Emergency Medicine
DX: R10.13 Epigastric pain (principal); R14.3 Flatulence; K21.9 Gastro-esophageal reflux disease without esophagitis; Z90.49 Acquired absence of other specified parts of digestive tract
CPT/HCPCS: 36415; 74177; 80053; 81001; 81025; 83615; 83690; 83735; 84702; 85025; 85610; 87086; 96361; 96374; 96375; 99284; J1885; J2270; J2405; Q9967

== ENCOUNTER 2022-04-17 08:19 | Emergency (ER) | payer MEDICAID, SELFPAY ==
--- NOTE | ~2022-04-17 | CT_ITS ---
EXAMINATION: CT ABDOMEN AND PELVIS WITH CONTRAST CLINICAL INFORMATION: Epigastric pain with question of retained stone and pancreatitis COMPARISON: CT abdomen pelvis 01/14/2021 TECHNIQUE: Multidetector volumetric images were obtained from the superior aspect of the liver through the pubic symphysis following administration 85 mL of Omnipaque 350 intravenous contrast. Sagittal and coronal reformatted images were obtained on the technologist's workstation. Oral contrast: No This CT examination was performed using dose optimization techniques as appropriate, variously including the following: *Automated exposure control *Adjustment of mA and/or kV according to patient size (this includes techniques or standardized protocols for targeted exams where dose is matched to indication/reason for exam; i.e. extremities or head) *Use of iterative reconstruction technique DLP: 527 mGy-cm FINDINGS: LUNG BASES: The visualized lung bases are unremarkable. LIVER, GALLBLADDER, AND BILIARY TREE: The liver is normal in size, shape, and attenuation. No focal hepatic lesion or biliary ductal dilatation is present. The gallbladder is unremarkable with no evidence of radiopaque gallstones, gallbladder wall thickening, or obvious pericholecystic inflammatory changes. PANCREAS: Unremarkable. No masses are seen. The pancreatic duct is not dilated. SPLEEN: Unremarkable. ADRENAL GLANDS: Unremarkable. KIDNEYS AND URETERS: The kidneys are normal in size, shape, and attenuation. No hydronephrosis, hydroureter, or calculi seen. 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 No perinephric stranding. BLADDER: Unremarkable. GASTROINTESTINAL TRACT: The small and large bowel are unremarkable. The appendix is unremarkable. ABDOMINAL WALL: No significant hernia is appreciated. LYMPH NODES: No retroperitoneal lymphadenopathy. VASCULAR: Unremarkable. PELVIC VISCERA: The uterus and adnexa are unremarkable. OSSEOUS STRUCTURES: Unremarkable. CT/CT abdomen pelvis w IV con IMPRESSION: A cause for the patient's epigastric pain has not been found. No evidence of pancreatitis. Fleischner guidelines were followed.
[2022-04-17 08:27] VITALS: BP 122/74; PULSE 99; RESP 18; TEMP 36.1; O2SAT 98; BMI 18.6
[2022-04-17] MEDS: Ondansetron ODT 4 MG TAB.RAPDIS TRANSLINGU (08:35)
[2022-04-17 08:48] VITALS: BP 122/77; PULSE 82; RESP 14; TEMP 36.4; O2SAT 97
[2022-04-17 09:43] LABS: IDNOW Serial# 16C4AD1C
[2022-04-17 09:44] LABS: COVID-19 Test Negative (Negative); IDNOW Serial# 9DB6401D; Influenza A Negative (Negative); Influenza B2 Negative (Negative)
--- NOTE | 2022-04-17 09:46 | ED.NAVMDI ---
HPI - Nausea/Vomiting/Diarrhea General Chief complaint: Nausea/Vomiting/Diarrhea Stated complaint: vomiting, cant keep anything down. Time Seen by Provider: 04/17/22 08:36 Source: patient Mode of arrival: ambulatory History of Present Illness HPI Narrative: 31-year-old female who is status post cholecystectomy last year presents with onset of epigastric pain and subsequent nausea and vomiting without associated fever, chills, urinary symptoms or diarrhea. Patient states that it feels very similar to her prior pain when she had her gallbladder. LMP was last month, patient does not feel that she would be as her monogamous partner is status post vasectomy. Related Data Previous Rx's Medication Instructions Recorded ondansetron HCl 4 mg tablet 4 mg PO Q6H PRN nausea and 09/01/20 (Zofran) vomiting #10 tabs tramadol 50 mg tablet 50 mg PO Q8H PRN pain #7 tabs 09/01/20 docusate sodium 100 mg capsule 100 mg PO BID PRN constipation #30 09/15/20 (Colace) caps acetaminophen 500 mg tablet 1,000 mg PO QID PRN fever or pain 01/14/21 (Tylenol Extra Strength) #14 tabs famotidine 20 mg tablet (Pepcid) 20 mg PO BID gerd #20 tabs 01/14/21 ibuprofen 600 mg tablet 600 mg PO Q6H PRN fever #14 tabs 01/14/21 ondansetron HCl 4 mg tablet 4 mg PO Q8H PRN nausea and 01/14/21 (Zofran) vomiting #14 tabs oxycodone 5 mg tablet 5 mg PO Q6H PRN pain #14 tabs 01/14/21 simethicone 125 mg capsule 125 mg PO DAILY PRN abdominal 01/14/21 distention #20 caps ondansetron 4 mg disintegrating 4 mg PO Q8H PRN nausea and 04/17/22 tablet vomiting #7 tabs Allergies Allergy/AdvReac Type Severity Reaction Status Date / Time No Known Allergies Allergy Verified 04/17/22 08:32 [No Known Allergies*] Review of Systems Review of Systems: Pertinent positives and negatives as stated in HPI PMFSH Past Medical History Source: nursing notes reviewed Medical History No significant past medical history Surgical History Hx of wisdom tooth extraction S/P laparoscopic cholecystectomy (09/13/20) Family History Family History Paternal Grandfather History of colon cancer Maternal Grandfather History of kidney cancer Social History Social History Alcohol intake: never Patient Tobacco Use Status: Never used Tobacco Advance Directives: No Advance Directives Information Provided: No Physical Exam Vital Signs: Vital Signs: Last Vital Signs Temp 97.7 F 04/17/22 11:52 Pulse 76 04/17/22 11:52 Resp 14 04/17/22 11:52 BP 111/72 04/17/22 11:56 Pulse Ox 99 04/17/22 11:52 O2 Del Method 04/17/22 11:52 BMI result Body Mass Index 18.6 VITAL SIGNS: Reviewed. GENERAL: Well developed, well nourished, in no acute distress. HEAD: Normocephalic/atraumatic EYES: PERRLA, EOMI EARS: Ext canals without abnormality OROPHARYNX: no oral lesions noted, posterior pharynx clear LUNGS: Normal breath sounds. No adventitious sounds or accessory muscle use. SpO2<97> CARDIOVASCULAR: Regular rate and rhythm without noted murmurs ABDOMEN: Soft, exquisitely tender in the epigastrium, non-distended with bowel sounds. MUSCULOSKELETAL: No tenderness, deformities, or effusions noted on gross inspection. EXTREMITIES: No cyanosis, clubbing or edema. SKIN: Inspection of the skin reveals no rashes NEUROLOGIC: Alert and oriented x 4. Strength and sensation to light touch were grossly intact x 4. Medications Administered Discontinued Medications Generic Name Dose Route Start Last Admin Trade Name Freq PRN Reason Stop Dose Admin Al Hydroxide/Mg Hydroxide 30 ml 04/17/22 14:27 04/17/22 14:35 Magnesium Hydrox/Alum Hydrox 30 Ml Oral.Susp PO 04/17/22 14:28 30 ml ONCE ONE Administration Sodium Chloride 1,000 mls @ 999 mls/hr 04/17/22 09:45 04/17/22 11:35 Ns IV 04/17/22 10:45 Infused .Q1H1M PETE Infusion Iohexol 85 ml 04/17/22 11:38 04/17/22 11:40 Iohexol 350 Mg/Ml 100 Ml Infus..Btl IV 04/17/22 11:39 85 ml ONCE ONE Administration Ketorolac Tromethamine 15 mg 04/17/22 10:05 04/17/22 10:12 Ketorolac Tromethamine 30 Mg/Ml Vial IVPUSH 04/17/22 10:06 15 mg ONCE ONE Administration Lidocaine HCl 10 ml 04/17/22 14:27 04/17/22 14:35 Lidocaine Hcl Viscous 2 % 15 Ml Solution MUCOUS MEM 04/17/22 14:28 10 ml ONCE ONE Administration Ondansetron HCl 4 mg 04/17/22 08:32 04/17/22 08:35 Ondansetron Odt 4 Mg Tab.Rapdis TRANSLINGU 04/17/22 08:33 4 mg ONCE ONE Administration Medical Decision Making Medical Decision Making MDM Narrative: This is a 31-year-old female with suspected retained stone/pancreatitis, will obtain basic labs, hydrate, provide pain medication as well as antinausea medication. 1428: I reviewed all investigations him my interpretation is that this is a gastroenteritis likely associated with a gastritis at this point and patient will receive a GI cocktail and undergo a p.o. challenge. I discussed all results and findings with the patient at bedside. 1454: Patient has tolerated p.o. challenge and will be discharged home in stable condition Differential Diagnosis Please see the discussion above Lab Data Please see the discussion above 04/17/22 09:50 04/17/22 09:50 Labs: Lab Results 04/17/22 04/17/22 04/17/22 Range/Units 09:11 09:11 09:50 WBC 6.0 (4.8-10.8) X10*3/uL RBC 5.23 (4.20-5.50) X10*6/uL Hgb 15.6 (12.0-16.0) g/dl Hct 45.4 (37.0-47.0) % MCV 86.8 (80.0-98.0) fL MCH 29.8 (27.0-33.0) pg MCHC 34.4 (31.0-35.0) g/dl RDW 11.3 (11.0-16.0) % Plt Count 327 (160-400) X10*3/uL MPV 9.7 (9.4-12.3) fL Immature Gran % (Auto) 0.2 (0.0-0.4) % Neut % (Auto) 77.2 H (45-73) % Lymph % (Auto) 17.4 L (20-40) % [place] % (Auto) 4.2 (2-11) % Eos % (Auto) 0.7 (0-4) % Baso % (Auto) 0.3 (0-2) % Lymph # (Auto) 1.1 L (1.2-4.9) X10*3/uL [place] # (Auto) 0.3 (0.1-1.2) X10*3/uL Eos # (Auto) 0.0 (0.0-0.4) X10*3/uL Baso # (Auto) 0.0 (0.0-0.2) X10*3/uL Abs Immat Gran (auto) 0.01 (0.00-0.03) X10*3/uL Absolute Neuts (auto) 4.7 (2.0-8.3) x10*3/uL Absolute Nucleated RBC 0.000 (0.0-0.012) X10*3/uL Nucleated RBC % (auto) 0.0 (0.0-0.2) /100WBC Sodium (135-145) mmol/L Potassium (3.3-5.1) mmol/L Chloride (96-108) mmol/L Carbon Dioxide (22-29) mmol/L Anion Gap (12-20) BUN (9-16) mg/dL Creatinine (0.5-1.4) mg/dL Estim Creat Clear Calc Estimated GFR Random Glucose (60-115) mg/dL Calcium (8.4-10.2) mg/dL Total Bilirubin (0.0-1.0) mg/dL AST (5-31) U/L ALT (0-31) U/L Alkaline Phosphatase (39-117) U/L Total Protein (6.5-8.0) g/dL Albumin (3.5-5.0) g/dL Lipase (8-78) U/L Urine Color Urine Appearance Urine pH (5.0-9.0) Ur Specific [place] (1.005-1.025) Urine Protein (Neg-Trace) mg/dL Urine Glucose (UA) (Negative) mg/dL Urine Ketones (Negative) mg/dL Urine Blood (Negative) Urine Nitrite (Negative) Ur Leukocyte Esterase (Negative) Urine Test (NEGATIVE) COVID-19 (VERA) Negative (Negative) COVID-19 Clin Com See Note Influenza Type A (KATIUSKA) Negative (Negative) Influenza Type B (KATIUSKA) Negative (Negative) Influenza A & B Note See Note 04/17/22 04/17/22 04/17/22 Range/Units 09:50 09:50 09:50 WBC (4.8-10.8) X10*3/uL RBC (4.20-5.50) X10*6/uL Hgb (12.0-16.0) g/dl Hct (37.0-47.0) % MCV (80.0-98.0) fL MCH (27.0-33.0) pg MCHC (31.0-35.0) g/dl RDW (11.0-16.0) % Plt Count (160-400) X10*3/uL MPV (9.4-12.3) fL Immature Gran % (Auto) (0.0-0.4) % Neut % (Auto) (45-73) % Lymph % (Auto) (20-40) % [place] % (Auto) (2-11) % Eos % (Auto) (0-4) % Baso % (Auto) (0-2) % Lymph # (Auto) (1.2-4.9) X10*3/uL [place] # (Auto) (0.1-1.2) X10*3/uL Eos # (Auto) (0.0-0.4) X10*3/uL Baso # (Auto) (0.0-0.2) X10*3/uL Abs Immat Gran (auto) (0.00-0.03) X10*3/uL Absolute Neuts (auto) (2.0-8.3) x10*3/uL Absolute Nucleated RBC (0.0-0.012) X10*3/uL Nucleated RBC % (auto) (0.0-0.2) /100WBC Sodium 141 (135-145) mmol/L Potassium 4.1 (3.3-5.1) mmol/L Chloride 108 (96-108) mmol/L Carbon Dioxide 25 (22-29) mmol/L Anion Gap 12 (12-20) BUN 9 (9-16) mg/dL Creatinine 0.83 (0.5-1.4) mg/dL Estim Creat Clear Calc 82.3 Estimated GFR > 60 Random Glucose 105 (60-115) mg/dL Calcium 9.5 (8.4-10.2) mg/dL Total Bilirubin 0.4 (0.0-1.0) mg/dL AST 33 H (5-31) U/L ALT 56 H (0-31) U/L Alkaline Phosphatase 70 (39-117) U/L Total Protein 7.5 (6.5-8.0) g/dL Albumin 4.6 (3.5-5.0) g/dL Lipase 24 (8-78) U/L Urine Color Yellow Urine Appearance Clear Urine pH 7.5 (5.0-9.0) Ur Specific [place] 1.015 (1.005-1.025) Urine Protein Negative (Neg-Trace) mg/dL Urine Glucose (UA) Negative (Negative) mg/dL Urine Ketones Negative (Negative) mg/dL Urine Blood Negative (Negative) Urine Nitrite Negative (Negative) Ur Leukocyte Esterase Negative (Negative) Urine Test NEGATIVE (NEGATIVE) COVID-19 (VERA) (Negative) COVID-19 Clin Com Influenza Type A (KATIUSKA) (Negative) Influenza Type B (KATIUSKA) (Negative) Influenza A & B Note Radiology Impression Radiologist Impression: My interpretation is in agreement with radiology's impression of the imaging study. External Record Review External record reviewed: Outpatient record and Prior outpatient labs Discharge Plan Discharge Clinical Impression: Gastroenteritis Patient Disposition: Home, Self-Care Instructions: Gastroenteritis (ED) Additional Instructions: 1. Resume all home medications as prescribed. 2. Please follow-up with your primary care provider in the next 1-2 days for re-evaluation further outpatient management. Return to the ER for worsening symptoms. Prescriptions: New ondansetron 4 mg tablet,disintegrating 4 mg PO Q8H PRN (Reason: nausea and vomiting) Qty: 7 0RF No Action docusate sodium [Colace] 100 mg capsule 100 mg PO BID PRN (Reason: constipation) Qty: 30 0RF tramadol 50 mg tablet 50 mg PO Q8H PRN (Reason: pain) Qty: 7 0RF ondansetron HCl [Zofran] 4 mg tablet 4 mg PO Q6H PRN (Reason: nausea and vomiting) Qty: 10 0RF ondansetron HCl [Zofran] 4 mg tablet 4 mg PO Q8H PRN (Reason: nausea and vomiting) Qty: 14 0RF famotidine [Pepcid] 20 mg tablet 20 mg PO BID Qty: 20 0RF oxycodone 5 mg tablet 5 mg PO Q6H PRN (Reason: pain) Qty: 14 0RF simethicone 125 mg capsule 125 mg PO DAILY PRN (Reason: abdominal distention) Qty: 20 0RF acetaminophen [Tylenol Extra Strength] 500 mg tablet 1,000 mg PO QID PRN (Reason: fever or pain) Qty: 14 0RF ibuprofen 600 mg tablet 600 mg PO Q6H PRN (Reason: fever) Qty: 14 0RF
[2022-04-17] MEDS: 0.9 % Sodium Chloride 1,000 ML 999 ML IV (09:56)
[2022-04-17 09:57] LABS: MANUAL DIFF FLAG NO
[2022-04-17 09:58] LABS: Basophils Percent Auto 0.3 % (0-2); Eosinophils Percent Auto 0.7 % (0-4); Hematocrit 45.4 % (37.0-47.0); Hemoglobin 15.6 g/dl (12.0-16.0); Imm Gran Abs Auto 0.01 X10*3/uL (0.00-0.03); Imm Gran Pct Auto 0.2 % (0.0-0.4); Lymphocytes Absolute Auto 1.1 X10*3/uL (1.2-4.9); Lymphocytes Percent Auto 17.4 % (20-40); Mean Corpuscular HGB Conc 34.4 g/dl (31.0-35.0); Mean Corpuscular Hemoglobin 29.8 pg (27.0-33.0); Mean Corpuscular Volume 86.8 fL (80.0-98.0); Mean Platelet Volume 9.7 fL (9.4-12.3); Monocytes Absolute Auto 0.3 X10*3/uL (0.1-1.2); Monocytes Percent Auto 4.2 % (2-11); Neutrophils Absolute Auto 4.7 x10*3/uL (2.0-8.3); Neutrophils Percent Auto 77.2 % (45-73); Platelet Count 327 X10*3/uL (160-400); Red Blood Count 5.23 X10*6/uL (4.20-5.50); Red Cell Distribution Width 11.3 % (11.0-16.0)
[2022-04-17 10:03] LABS: Appearance Urine Clear; Color Urine Yellow; Glucose Urine UA Negative (Negative); Leukocyte Esterase Urine Negative (Negative); Nitrite Urine Negative (Negative); PH 7.5 (5.0-9.0); Specific Gravity - Urine 1.015 (1.005-1.025); Urine Blood Negative (Negative); Urine Ketones Negative (Negative); Urine Pregnancy NEGATIVE (NEGATIVE); Urine Protein Negative (Neg-Trace)
[2022-04-17 10:04] LABS: UPreg QC Valid YES
[2022-04-17] MEDS: Ketorolac Tromethamine 30 MG/ML VIAL 15 MG IVPUSH (10:12)
[2022-04-17 10:13] LABS: Alanine Aminotransferase 56 U/L (0-31); Albumin Level 4.6 g/dL (3.5-5.0); Alkaline Phosphatase 70 U/L (39-117); Anion Gap 12 (12-20); Aspartate Amino Transferase 33 U/L (5-31); Bilirubin Total 0.4 mg/dL (0.0-1.0); Blood Urea Nitrogen 9 mg/dL (9-16); Calcium 9.5 mg/dL (8.4-10.2); Carbon Dioxide 25 mmol/L (22-29); Chloride 108 mmol/L (96-108); Creatinine Clr Calc Pharmacy 82.3; Estimated Glomerular Filt Rate > 60; Glucose Random 105 mg/dL (60-115); Lipase 24 U/L (8-78); Potassium 4.1 mmol/L (3.3-5.1); Sodium 141 mmol/L (135-145); Total Protein 7.5 g/dL (6.5-8.0)
[2022-04-17] MEDS: iohexoL 350 MG/ML 100 ML INFUS..BTL 85 ML IV (11:40)
[2022-04-17 11:52] VITALS: BP 96/57; PULSE 76; RESP 14; TEMP 36.5; O2SAT 99
[2022-04-17 11:56] VITALS: BP 111/72
[2022-04-17] MEDS: Magnesium Hydrox/Alum Hydrox 30 ML ORAL.SUSP PO (14:35)
[2022-04-17] MEDS: Lidocaine HCl Viscous 2 % 15 ML SOLUTION 10 ML MUCOUS MEM (14:35)
== END 2022-04-17 22:31 | disposition home or self-care (01) ==
PROVIDERS: Emergency Provider Student in an Organized Health Care Education/Training Program
DX: K52.9 Noninfective gastroenteritis and colitis, unspecified (principal); R11.2 Nausea with vomiting, unspecified; R10.13 Epigastric pain; Z20.822 Contact with and (suspected) exposure to COVID-19; Z20.828 Contact with and (suspected) exposure to other viral communicable diseases; Z79.899 Other long term (current) drug therapy
CPT/HCPCS: 36415; 74177; 80053; 81003; 81025; 83690; 85025; 87502; 87635; 96361; 96374; 99284; J1885; Q9967